=== PATIENT | male | born 1965 | race Two or more races ===

== ENCOUNTER 2022-11-11 11:58 | Emergency (ER) | payer OTHER ==
[~2022-11-11] VITALS: Ht 182.9 cm; Wt 136.1 kg
[2022-11-11] MEDS ORDERED: GLIMEPIRIDE4 MG (12:46)
[2022-11-11] MEDS ORDERED: COZAAR100 MG PO (12:46)
[2022-11-11] MEDS ORDERED: METFORMIN HCL1000 M2 (12:47)
[2022-11-11] MEDS ORDERED: ATORVASTATIN CA10 MG PO (12:48)
== END 2022-11-11 16:06 | disposition home or self-care (01) ==
LOC: ER 11:58
DX: S60.212A Contusion of left wrist, initial encounter (principal); S90.02XA Contusion of left ankle, initial encounter; X58.XXXA Exposure to other specified factors, initial encounter; Y93.9 Activity, unspecified; Y92.9 Unspecified place or not applicable; Y99.9 Unspecified external cause status

== ENCOUNTER 2023-05-24 14:43 | Emergency (ER) | payer OTHER ==
[~2023-05-24] VITALS: Ht 182.9 cm; Wt 131.5 kg
[~2023-05-24 14:43] MED LIST: ATORVASTATIN CA10 MG PO; COZAAR100 MG PO; GLIMEPIRIDE4 MG; METFORMIN HCL1000 M2
[2023-05-24 18:54] LABS: HEMOGLOBIN 13.6 g/dL (13-16.00); MEAN CORPUSCULAR HEMOGLOBIN 28.3 pg (27.00-32.0); MEAN CORPUSCULAR HGB CONC 33.3 g/dl (32.0-36.0); PLATELET COUNT 166 K/uL (150-450); RED BLOOD COUNT 4.82 M/uL (4.00-6.00); RED CELL DISTRIBUTION WIDTH 13.7 % (11.5-14.5)
[2023-05-24 21:57] LABS: CALCIUM 9.1 mg/dL (8.5-10.1); CREATININE SERUM 0.8 mg/dL (0.70-1.30); GFR 100.36; POTASSIUM 3.77 mEq/L (3.5-5.1)
== END 2023-05-24 22:31 | disposition home or self-care (01) ==
LOC: ER 14:44
PROVIDERS: General Practice
DX: L05.91 Pilonidal cyst without abscess (principal); E11.9 Type 2 diabetes mellitus without complications; Z79.84 Long term (current) use of oral hypoglycemic drugs; I10 Essential (primary) hypertension

== ENCOUNTER 2023-05-28 13:52 | Emergency (ER) | payer OTHER ==
[~2023-05-28] VITALS: Ht 182.9 cm; Wt 133.8 kg
[2023-05-28 19:49] LABS: HEMATOCRIT 41.1 % (39.0-48.0); HEMOGLOBIN 13.7 g/dL (13-16.00); MEAN CELL VOLUME 86.2 fL (80.0-100.00); MEAN CORPUSCULAR HEMOGLOBIN 28.6 pg (27.00-32.0); MEAN CORPUSCULAR HGB CONC 33.2 g/dl (32.0-36.0); PLATELET COUNT 234 K/uL (150-450); RED BLOOD COUNT 4.77 M/uL (4.00-6.00); RED CELL DISTRIBUTION WIDTH 13.5 % (11.5-14.5)
[2023-05-28 20:04] LABS: INR 1.05; PARTIAL THROMBOPLASTIN TIME 26.1 SECONDS (22.0-34.0)
[2023-05-28 20:10] LABS: ALBUMIN 3.5 gm/dL (3.4-5.0); BILIRUBIN TOTAL 0.44 mg/dL (0.3-1.2); CALCIUM 9.4 mg/dL (8.5-10.1); CREATININE SERUM 0.84 mg/dL (0.70-1.30); GFR 94.87; GLOBULINA 4.4 G/DL (2.4-3.5); TOTAL PROTEIN 7.9 gm/dL (6.4-8.2)
== END 2023-05-29 04:04 | disposition home or self-care (01) ==
LOC: ER 13:53
PROVIDERS: Emergency Medicine
DX: L05.01 Pilonidal cyst with abscess (principal); E11.9 Type 2 diabetes mellitus without complications; Z79.84 Long term (current) use of oral hypoglycemic drugs; I10 Essential (primary) hypertension; Z20.822 Contact with and (suspected) exposure to COVID-19

== ENCOUNTER 2023-06-03 16:32 | Emergency (ER) | payer OTHER ==
[~2023-06-03] VITALS: Ht 182.9 cm; Wt 135.2 kg
[2023-06-03] MEDS ORDERED: NAPR500T14 (17:24)
[2023-06-03] MEDS ORDERED: AMOX-CLAV 875-1 EACH (17:26)
[2023-06-03 23:03] LABS: HEMATOCRIT 39.8 % (39.0-48.0); HEMOGLOBIN 13.3 g/dL (13-16.00); MEAN CELL VOLUME 83.3 fL (80.0-100.00); MEAN CORPUSCULAR HEMOGLOBIN 27.8 pg (27.00-32.0); MEAN CORPUSCULAR HGB CONC 33.4 g/dl (32.0-36.0); PLATELET COUNT 292 K/uL (150-450); RED BLOOD COUNT 4.77 M/uL (4.00-6.00); RED CELL DISTRIBUTION WIDTH 13.5 % (11.5-14.5)
[2023-06-03 23:11] LABS: ERYTHROCYTE SEDIMENTATION RATE 39 mm/hr
[2023-06-03 23:24] LABS: CALCIUM 9.1 mg/dL (8.5-10.1); CREATININE SERUM 0.84 mg/dL (0.70-1.30); GFR 94.87; POTASSIUM 3.54 mEq/L (3.5-5.1)
[2023-06-03 23:27] LABS: C-REACTIVE PROTEIN 0.43 MG/DL (0.00-0.29)
[2023-06-04] MEDS ORDERED: AMOX-CLAV 875-1 EAC1 PO (00:02)
== END 2023-06-04 00:28 | disposition home or self-care (01) ==
LOC: ER 16:33
PROVIDERS: Nurse Practitioner Family
DX: L02.91 Cutaneous abscess, unspecified (principal); E11.9 Type 2 diabetes mellitus without complications; Z79.84 Long term (current) use of oral hypoglycemic drugs; I10 Essential (primary) hypertension

== ENCOUNTER → 2023-09-06 | Emergency (ER) | payer OTHER ==
[~2023-09-06] VITALS: Ht 182.9 cm; Wt 135.2 kg
[~2023-09-06] MED LIST changes: +ACID REDUCER20 M1 PO; +ADVIL DUAL ACT1 EACH PO; +AMOX-CLAV 875-1 EAC1 PO; +AMOX-CLAV 875-1 EACH; +KETOROLAC TROMETHAMINE 30 MG VIAL IM STA; +NAPR500T14
== END | disposition home or self-care (01) ==
LOC: ER 15:32
DX: M94.0 Chondrocostal junction syndrome [Tietze] (principal); R07.89 Other chest pain